=== PATIENT | female | born 1955 | race African-American/Black ===

== ENCOUNTER 2017-10-19 07:52 | Emergency (ER) | payer BC, OTHER ==
--- NOTE | 2017-10-19 12:08 | RAD ---
TWO VIEWS CHEST: Date: 10-19-17 Comparison: 10-06-13 History: Flu-like symptoms with cough, chills, and headache. FINDINGS: Lungs are clear. Heart and mediastinal contours are unremarkable. Post-operative clips in upper abdom en suggest prior cholecystectomy. IMPRESSION: No acute findings. POS: [facility]
== END 2017-10-19 09:30 | disposition home or self-care (01) ==
LOC: ERS 07:52
DX: J20.9 Acute bronchitis, unspecified (principal); E78.5 Hyperlipidemia, unspecified; I10 Essential (primary) hypertension; F41.9 Anxiety disorder, unspecified; F32.9 Major depressive disorder, single episode, unspecified; Z79.899 Other long term (current) drug therapy
CPT/HCPCS: 71046

== ENCOUNTER 2017-11-11 10:19 | Inpatient (IN) | payer BC ==
[2017-11-11] MEDS ORDERED: diphenhydrAMINE 25 MG CAP ONE (12:28)
[2017-11-11] MEDS ORDERED: predniSONE 20 MG TAB ONE (12:28)
[2017-11-11] MEDS ORDERED: Famotidine 20 MG TAB ONE (12:28)
--- NOTE | 2017-11-11 13:22 | RAD ---
CHEST TWO VIEWS: 11/11/2017 HISTORY: Dyspnea. COMPARISON: 10/19/2017 TECHNIQUE: PA and lateral views of the chest are obtained. FINDINGS: Two views of the chest demonstrate the lungs to be well aerated. No evidence of active intrathoracic disease is seen. No evidence of effusions, pneumonia, or pneumothorax is seen. IMPRESSION: Normal two views chest. POS: [facility]
[2017-11-11 15:01] LABS: #Basophils 0.1 thou/uL (0.0-0.2); #Eosinphils 0.7 thou/uL (0.0-0.7); #Lymphocytes 2.5 thou/uL (1.20-3.40); #Monocytes 0.3 thou/uL (0.11-0.59); #Neutrophils 5.7 thou/uL (1.40-6.50); %Basophils 0.9 % (0.0-1.0); %Eosinophils 7.6 % (0.0-10.0); %Lymphocytes 27.4 % (21.0-51.0); %Monocytes 2.7 % (0.0-10.0); %Neutrophils 61.5 % (42.0-75.0); Hemoglobin 12.2 g/dL (12.0-16.0); Mean Corpuscular HGB CONC 32.4 g/dL (32.0-36.0); Mean Corpuscular Hemoglobin 28.8 pg (27.0-31.0); Mean Platelet Volume 7.8 fL (7.4-10.4); Platelet Count 326 thou/uL (130-400); RBC Distribution Width 13.3 % (11.5-14.5); Red Blood Cell (RBC) Count 4.24 mill/uL (4.20-5.40); White Blood Cell (WBC) Count 9.2 thou/uL (4.8-10.8)
--- NOTE | 2017-11-11 15:17 | PDOC.FPRHP ---
- History of Present Illness Chief Complaint: Allergic reaction History of Present Illness: 61 yo female presents for evaluation of allergic reaction. She states that she saw her ENT doctor on Friday and was given Augmentin after his evaluation revealed sinusitis. She did not have any clinical congestion or mucous production. However, given her past sinus surgery, her doctor decided to treat. She took the medication on Friday, Friday, and Friday without any problem. Then on friday she became nauseas, vomited, and developed a red rash on her back. She then stated she began to feel SOB today. She called the clinic and was advised to go to the ER. Also recently she has been dealing with bronchitis symptoms for which she was given prednisone by her PCP. She admits to wheezing during this time, but it is unchanged since the beginning of her bronchitis episodes. She states that she has not had fever, chills, difficulty speaking, or difficulty swallowing. No other complaints at this time. ED Course: Duoneb x2 Diphenhydramine Famotidine Prednisone - Allergies/Adverse Reactions Allergies Allergy/AdvReac Type Severity Reaction Status Date / Time amoxicillin [From Augmentin] Allergy Severe Rash Verified 11/11/17 17:21 clavulanic acid Allergy Severe Rash Verified 11/11/17 17:21 [From Augmentin] codeine Allergy Verified 11/22/13 21:21 hydrocodone Allergy Verified 11/23/13 03:30 - Home Medications Medication Instructions Recorded Confirmed Type Aspirin [Children's Aspirin] 81 mg PO DAILY 11/23/13 11/11/17 History Lorazepam [Ativan] 1 mg PO HS PRN 11/23/13 11/11/17 History Meclizine HCl [Antivert] 25 mg PO Q8H PRN #0 tab 11/23/13 11/11/17 Rx Acetaminophen [Tylenol Extra 500 mg PO Q4H PRN #0 tab 03/19/16 11/11/17 Rx Strength] Ondansetron [Zofran ODT] 4 mg PO Q6H PRN #0 tab 03/19/16 11/11/17 Rx Amlodipine [Norvasc] 5 mg PO DAILY 11/11/17 11/11/17 History Atorvastatin Calcium [Lipitor] 20 mg PO DAILY 11/11/17 11/11/17 History Benzonatate [Tessalon] 100 mg PO TID PRN 11/11/17 11/11/17 History Cyclobenzaprine HCl 10 mg PO HS 11/11/17 11/11/17 History DULoxetine [Cymbalta] 30 mg PO DAILY 11/11/17 11/11/17 History Losartan/Hydrochlorothiazide 1 each PO DAILY 11/11/17 11/11/17 History [Losartan-Hctz 50-12.5 mg Tab] Pantoprazole [Protonix] 40 mg PO DAILY 11/11/17 11/11/17 History Phentermine HCl 37.5 mg PO DAILY 11/11/17 11/11/17 History Phentermine HCl 37.5 mg PO DAILY 11/11/17 11/11/17 History Ventolin HFA Inhaler [Ventolin HFA 2 puff INH Q6HR PRN 11/11/17 11/11/17 History Inhaler] guaiFENesin/Dextromethorphan 2 capsule PO Q4HR PRN 11/11/17 11/11/17 History [Robitussin Cough+Chest Congestion DM] predniSONE [predniSONE] 20 mg PO DAILY 11/11/17 11/11/17 History - History PMHx: HLD, HTN, RA, Anxiety, Depression PSHx: Left wrist, left knee, Bilateral laryngeal cyst removals, Tubal ligation, cholecystectomy, sinus surgery FHx: Non-Contributory Social: No tobacco, alcohol, or drug use. - Review of Systems General: denies: fever/chills, weight/appetite/sleep changes Eyes: denies: eye pain, vision changes ENT: denies: nasal congestion Respiratory: reports: cough, other (wheezing). denies: congestion, shortness of breath, exercise intolerance Cardiovascular: denies: chest pain, palpitation Gastrointestinal: reports: nausea, vomiting. denies: diarrhea, constipation, abdominal pain Genitourinary: denies: incontinence, dysuria Skin: reports: rashes. denies: lesions, jaundice Musculoskeletal: denies: pain, tenderness, stiffness Neurological: denies: numbness, syncope Psychological: denies: anxiety, depression - Vital signs BP: 130/88 HR: 104 RR: 20 Tmax: 98.3 Pox: 97% on RmAir Wt: 91 kg - Physical Exam Constitutional: NAD HEENT: PERRLA, grossly normal vision, grossly normal hearing, normal nasal mucosa -HEENT: poor dentition. Patent airway. No evidence of pharyngeal edema Neck: supple, trachea midline Chest: no-tender to palpation Heart: RRR, normal S1/S2 Lungs: CTAB, good air movement -Lungs: expiratory wheezing bilaterally Abdomen: soft, non-tender, bowel sounds present, no masses/distention Musculoskeletal: normal structure, normal tone, ROM grossly normal Neurological: no focal deficit, CN II-XII intact, normal sensation Skin: no rash/lesions, good turgor Heme/Lymphatic: no unusual bruising or bleeding, no purpura, no petechia Psychiatric: normal mood and affect, good judgment and insight, intact recent and remote memory FMR H&P: Results - Labs Result Diagrams: 11/11/17 14:51 11/11/17 16:14 Lab results: WBC 9.2 thou/uL (4.8-10.8) 11/11/17 14:51 Hgb 12.2 g/dL (12.0-16.0) 11/11/17 14:51 Hct 37.7 % (36.0-47.0) 11/11/17 14:51 MCV 89.0 fl (81.0-99.0) 11/11/17 14:51 Plt Count 326 thou/uL (130-400) 11/11/17 14:51 Neutrophils % 61.5 % (42.0-75.0) 11/11/17 14:51 - Radiology Interpretation Chest x-ray Status: report reviewed by me (No acute process) FMR H&P: A/P - Problem List (1) Bronchitis Current Visit: Yes Status: Acute Code(s): J40 - BRONCHITIS, NOT SPECIFIED ACUTE OR CHRONIC (2) Drug reaction Current Visit: Yes Status: Acute Code(s): T88.7XXA - UNSP ADVERSE EFFECT OF DRUG OR MEDICAMENT, INIT ENCNTR (3) GERD (gastroesophageal reflux disease) Current Visit: No Status: Acute Code(s): K21.9 - GASTRO-ESOPHAGEAL REFLUX DISEASE WITHOUT ESOPHAGITIS (4) HTN (hypertension) Current Visit: No Status: Acute Code(s): I10 - ESSENTIAL (PRIMARY) HYPERTENSION (5) Rheumatoid arthritis Current Visit: No Status: Acute Code(s): M06.9 - RHEUMATOID ARTHRITIS, UNSPECIFIED (6) Anxiety and depression Current Visit: No Status: Acute - Plan 1. Viral Bronchitis - Continue low dose prednisone - PRN albuterol 2. Mild drug reaction - Continue PPI - PRN zofran - No concern for anaphylaxis 3. Rheumatoid Arthritis - continue home meds - Patient may benefit from outpatient Pulmonology consultation. 4. HTN - Continue home meds - BP at goal 5. HLD - Continue home meds 6. Depression - Continue home meds CODE STATUS: FULL CODE Disposition: Stable, Will admit for Observation and discharge tomorrow. FMR H&P: Upper Level - Pertinent history 61 yr old female who presents > 12 hours after feeling some difficulty breathing. She attributes this to taking augmentin which she started 5 days ago which she got for chronic sinusitis by her ENT. She felt some tickling in her throat and sorta like her throat was closing last night at 8 pm. She then vomited and went to bed. Decided to come to ER this morning. Apparently she desat in the ER to 89% on a walking test and decided to admit her. She only received albuterol, pepcid, and benadryl in the ER. She states she has had a cough since 10/19/17 and has been treated for bronchitis with prednisone by PCP. - Pertinent findings Gen:no acute distress, no respiratory distress ENT: No pharyngeal edema, no uvular edema, no exudate. Lung: good air movement, wheezing diffuse, no Cardiac: RRR, no murmur, rub, gallop Abd: nontender, non distended. - Plan Date/Time: 11/11/17 2577 I, [Zahra Escamilla], have evaluated this patient and agree with findings/plan as outlined by architectural intern resident. Pertinent changes/additions are listed here. 61 yr old female with PMH of anxiety, WILL, RA, HLD, HTN, and depression who presents for difficulty breathing after taking augmentin. Bronchitis - cont low dose prednisone -PRN albuterol mild drug reaction -cont PPI -PRN zofran -no concern for anaphylaxis RA cont home meds HTN -cont home meds HLD -cont home meds depression -cont home Attending Addendum - Attending Addendum Date/Time: 11/11/17 5860 I personally evaluated the patient and discussed the management with Dr. Fritz and Francine. I agree with and repeated the History, Examination, Assessment and Plan documented above with any addition or exceptions noted below. Pt doing well, improved from ED. +cough, ST, and vomiting. Zofran PRN, add steroids and albuterol nebs, PPI. No signs of anaphylaxis or urticaria on exam. Will follow closely overnight and plan d/c tomorrow.
[2017-11-11 15:30] LABS: CKMB 2.4 ng/mL (0-6.6); Troponin I Less than 0.010 ng/mL (< 0.028)
[2017-11-11] MEDS ORDERED: Ondansetron ODT 4 MG TAB SL PRN (16:26)
[2017-11-11] MEDS ORDERED: Sodium Chloride 0.9% 1,000 ML IV SCH (16:26)
[2017-11-11] MEDS ORDERED: Ondansetron HCl/PF 4 MG/2 ML Vial IVP PRN (16:26)
[2017-11-11 16:34] LABS: Albumin 4.1 g/dL (3.5-5.0)
[2017-11-11 16:35] LABS: Chloride 107 mmol/L (98-107); Sodium 139 mmol/L (136-145)
[2017-11-11 16:36] LABS: Calcium 9.3 mg/dL (7.8-10.44); Glucose 97 mg/dL (70-105)
[2017-11-11 16:37] LABS: Globulin 4.4 g/dL (2.4-3.5); Protein, Total 8.5 g/dL (6.0-8.3)
[2017-11-11 16:38] LABS: Anion Gap 16 mmol/L (10-20); Bilirubin, Total 0.7 mg/dL (0.2-1.2); Carbon Dioxide 20 mmol/L (22-29)
[2017-11-11 16:39] LABS: Alkaline Phosphatase 109 U/L (40-150)
[2017-11-11 16:40] LABS: Calc. Creatinine Clearance 0 mL/min (70-130); Estimated GFR-MDRD Greater than 90
[2017-11-11 16:41] LABS: BUN (Urea Nitrogen) 9 mg/dL (9.8-20.1)
[2017-11-11 16:42] LABS: AST (SGOT) 28 U/L (5-34)
[2017-11-11 16:43] LABS: ALT (SGPT) 18 U/L (8-55)
[2017-11-11] MEDS ORDERED: Meclizine HCl 25 MG TAB PO PRN (18:49)
[2017-11-11] MEDS ORDERED: Ondansetron ODT 4 MG TAB PO PRN (18:49)
[2017-11-11] MEDS ORDERED: Lorazepam 1 MG TAB PO PRN (18:49)
[2017-11-11] MEDS ORDERED: Diabetic Tussin DM 5 ML UDCUP PO PRN (18:49)
[2017-11-11] MEDS ORDERED: PROVENTIL INHALER 6.7 G (200 INHALATIONS) INH PRN (18:49)
[2017-11-11] MEDS ORDERED: Acetaminophen 500 MG TAB PO PRN (18:49)
[2017-11-11] MEDS ORDERED: Guaifenesin DM 100-10/5 ML UDCUP PO PRN (22:25)
[2017-11-11] MEDS: Cyclobenzaprine 10 MG TAB PO SCH ×2 (23:18→23:23)
[2017-11-11] MEDS: Benzonatate 100 MG CAP PO PRN (23:25)
[2017-11-12] MEDS: guaiFENesin/DM ER PO PRN ×2 (04:16→17:30)
--- NOTE | 2017-11-12 08:24 | PDOC.FM ---
- Subjective Subjective: Mrs. Mabry is very pleasant this morning. She does note it being difficult to walk to the bathroom because she feels short of breath. She notes the increased SOB starting Friday evening. She notes coughing up sputum and shows me a jar of yellowish/white/buckley colored sputum at bedside. Productive cough since 10/19/17. She notes right sided rib pain worse with coughing. She has been 95% on RA this morning. She reports improvement in breathing with nebulizer treatment. She also is hoarse. This is new but she is unable to quantify how long (2 months vs 2 wks) - Objective MAR Reviewed: Yes Vital Signs & Weight: Vital Signs (12 hours) Temp Pulse Resp BP Pulse Ox 11/12/17 07:48 98.4 F 114 H 22 H 136/64 95 11/12/17 06:34 101 H 24 H 96 11/12/17 03:53 98.2 F 117 H 24 H 176/81 H 92 L 11/11/17 23:28 98.3 F 113 H 20 163/67 H 93 L 11/11/17 23:07 111 H 20 98 Weight Admit Weight 97.7 kg Weight 97.54 kg I&O: 11/11/17 11/12/17 11/13/17 06:59 06:59 06:59 Intake Total 3190 Balance 3190 Result Diagrams: 11/11/17 14:51 11/11/17 16:14 <Zahra Escamilla A - Last Filed: 11/12/17 09:19> - Objective Vital Signs & Weight: Vital Signs (12 hours) Temp Pulse Resp BP Pulse Ox 11/14/17 08:13 88 11/14/17 08:10 97.9 F 96 20 128/64 93 L 11/14/17 06:29 88 16 11/14/17 06:21 88 16 11/14/17 00:07 117 H 16 100 11/13/17 22:02 98.1 F 107 H 94 H 94 L Weight Admit Weight 97.7 kg Weight 97.54 kg I&O: 11/13/17 11/14/17 11/15/17 06:59 06:59 06:59 Intake Total 480 240 Balance 480 240 Result Diagrams: 11/11/17 14:51 11/11/17 16:14 <Destin Cortes A - Last Filed: 11/14/17 09:15> Phys Exam - Physical Examination Constitutional: NAD diffuse inspiratory and expiratory wheeezing, no crackles, no rhales Cardiovascular: no significant murmur tachycardic Gastrointestinal: soft, non-tender Musculoskeletal: no edema Neurological: non-focal, normal sensation, moves all 4 limbs Psychiatric: A&O x 3 <Zahra Escamilla - Last Filed: 11/12/17 09:19> Dx/Plan (2) Wheezing on auscultation Code(s): R06.2 - WHEEZING Status: Acute (3) Tachycardia with heart rate 100-120 beats per minute Code(s): R00.0 - TACHYCARDIA, UNSPECIFIED Status: Acute (4) HTN (hypertension) Code(s): I10 - ESSENTIAL (PRIMARY) HYPERTENSION Status: Chronic (5) Obstructive sleep apnea on CPAP Code(s): G47.33 - OBSTRUCTIVE SLEEP APNEA (ADULT) (PEDIATRIC) Status: Chronic (6) Rheumatoid arthritis Code(s): M06.9 - RHEUMATOID ARTHRITIS, UNSPECIFIED Status: Chronic - Plan Plan: 61 yr old female with long hisotry of rheumatoid arthritis presents for what is thought to be drug allergy and is found to be wheezing and admitting due to hypoxia on walk test. wheezing - differential include RA associated interstitial disease, adult onset asthma, bronchitis -will send sputum culture -needs PFT's- likely outpatient - Will do walk test this AM and clinical workup dependent on O2 sat Tachycardia -May be 2/2 increased nebulized albuterol -obtain EKG drug allergy -minimal if any, however will refrain from giving PCN to patient - no uvular swelling. HTN - controlled -continue home meds RA - outpatient mgmt -no acute flare <Zahra Escamilla - Last Filed: 11/12/17 09:19> Attending Addendum - Attending Addendum Date/Time: 11/14/17 0912 I personally evaluated the patient and discussed the management with Dr. Escamilla. I agree with the History, Examination, Assessment and Plan documented above with any addition or exceptions noted below. PENG and mildly at rest. Desats with exertion. Better with O2 via NC. Cough productive of yellowish sputum. Wheezes auscultated throughout bilat lungs, improved post neb. Continue respiratory support. Agree with CTA to eval for possible interstitial lung dz and r/o PE as pt. has no prior h/o pulmonary dysfunction. <Destin Cortes - Last Filed: 11/14/17 09:15>
[2017-11-12] MEDS ORDERED: predniSONE 20 MG TAB PO SCH (09:00)
[2017-11-12] MEDS ORDERED: Non-Formulary Item 1 EACH (Phentermine Hcl [Phentermine Hcl] 37.5 MG) PO SCH ×2 (09:00)
[2017-11-12] MEDS: Atorvastatin Calcium 20 MG TAB PO SCH (09:30)
[2017-11-12] MEDS: DULoxetine 30 MG CAP PO SCH (09:30)
[2017-11-12] MEDS: Amlodipine 5 MG TAB PO SCH ×2 (09:31→09:35)
[2017-11-12 11:57] VITALS: BMI 33.7
[2017-11-12] MEDS ORDERED: Iopamidol 370 76% 100 ML VIAL ONE (13:11)
--- NOTE | 2017-11-12 13:38 | CON ---
DATE OF CONSULTATION: 11/12/2017 This is a 61-year-old female, 90 kilos presented to the ER with a blood pressure of 151/138, pulse 113, respiration is 22. Sats 90% room air, temperature 98. She says she was itching after she was given some medicine over the last week and had shortness of breath. She denies any day st pain, chills, sweats, hemoptysis. She has longstanding history of chronic asthma. She smoked she says less than a pack a day for 10 years, quit smoking in the . No history of pr evious pneumonia, history of TB exposure. She says on most days, she says she can walk at least a bl ock without getting markedly short of breath. No leg pain, no swelling. PAST MEDICAL HISTORY: Pertinent for reflux, pancreatitis, rheumatoid arthritis, depression, anxiety. She is disabled. PAST SURGICAL HISTORY: Laryngeal cyst, tubal ligation, gallbladder, sinus surgery, left wrist surger y. ALCOHOL: No alcohol. HOME MEDICATIONS: Guaifenesin, aspirin, meclizine 25 p.r.n., Lipitor 20 mg, phentermine, 37.5, Norva sc 5 mg, Tessalon, Ativan, Cymbalta 30. ALLERGIES: PENICILLIN, CODEINE. SOCIAL/FAMILY HISTORY: She is a retired school health aide. Alcohol as noted. Tobacco as noted. REVIEW OF SYSTEMS: Otherwise, 10-point negative. PHYSICAL EXAMINATION: VITAL SIGNS: Sats are 97 on room air, respiration 20, pulse 108, temperature 97, blood pressure 170/ 81. CHEST: Chest reveals minimal wheezing. CARDIAC: Normal S1, S2, no gallops. ABDOMEN: Soft, no masses. LABORATORY: White count 9000, H&H 12 and 37, platelet count is normal. Electrolytes are normal. X-ray was normal. A CT angiogram shows no PE. IMPRESSION: 1. Chronic obstructive pulmonary disease. 2. Bronchial asthma exacerbation. 3. Depression. 4. Rheumatoid arthritis. PLAN: I agree with present treatment, nebs, steroids, Dulera. Pulmonary function test prior to discharge baseline. This is a consultation note, 70 minutes, of which 50% spent in direct patient care.
--- NOTE | 2017-11-12 14:35 | CT ---
CT PULMONARY ANGIOGRAM WITH IV CONTRAST AND 3D POSTPROCESSING: HISTORY: Hypoxia, tachycardia. FINDINGS: No filling defects are seen in the pulmonary artery vasculature to suggest an aneurysm. The thoracic aorta demonstrates no evidence of aneurysm or dilatation. No pleural or pericardial effusions are s een. No pneumothoraces, lobar consolidation, or lung masses are identified. There are mild degenera tive changes in the spine. IMPRESSION: No CT evidence of pulmonary embolism. POS: [facility]
[2017-11-12] MEDS ORDERED: Hydrochlorothiazide 25 MG TAB PO SCH (15:00)
[2017-11-12] MEDS: Mometasone/Formoterol 120 PUFF INHALER INH SCH (18:41)
--- NOTE | 2017-11-12 20:27 | EKG ---
Test Reason : Blood Pressure : / mmHG Vent. Rate : 109 BPM Atrial Rate : 109 BPM P-R Int : 142 ms QRS Dur : 088 ms QT Int : 326 ms P-R-T Axes : 056 059 040 degrees QTc Int : 439 ms Sinus tachycardia Otherwise normal ECG When compared with ECG of 22-MAR-2016 22:22, Nonspecific T wave abnormality no longer evident in Anterolateral leads Confirmed by TAMRA ZACARIAS (2) on 11/12/2017 8:27:02 PM Referred By: ASAD Confirmed By:TAMRA ZACARIAS
[2017-11-12] MEDS: Benzonatate 100 MG CAP PO PRN (21:24)
[2017-11-12] MEDS: Cyclobenzaprine 10 MG TAB PO SCH (21:25)
[2017-11-12] MEDS: predniSONE 20 MG TAB PO SCH (21:25)
[2017-11-13] MEDS: Mometasone/Formoterol 120 PUFF INHALER INH SCH ×2 (06:25→18:40)
[2017-11-13] MEDS: predniSONE 20 MG TAB PO SCH ×2 (08:58→21:06)
[2017-11-13] MEDS: Atorvastatin Calcium 20 MG TAB PO SCH (08:58)
[2017-11-13] MEDS: Hydrochlorothiazide 25 MG TAB PO SCH (08:58)
[2017-11-13] MEDS: DULoxetine 30 MG CAP PO SCH (08:58)
[2017-11-13] MEDS: Amlodipine 5 MG TAB PO SCH (08:59)
--- NOTE | 2017-11-13 11:54 | PDOC.FM ---
- Subjective Subjective: Patient is feeling better this morning. She states she has been up walking and does feel short winded but not quite as bad as yesterday. She is still coughing up phlegm. She otherwise has no complaints. - Objective MAR Reviewed: Yes Vital Signs & Weight: Vital Signs (12 hours) Temp Pulse Resp BP Pulse Ox 11/13/17 10:35 102 H 18 99 11/13/17 08:59 99 11/13/17 08:55 98.3 F 102 H 18 11/13/17 08:10 98.3 F 99 18 129/78 99 11/13/17 06:26 98 11/13/17 06:25 96 18 98 11/13/17 06:23 96 18 98 11/13/17 02:30 89 18 100 Weight Admit Weight 97.7 kg Weight 97.54 kg I&O: 11/12/17 11/13/17 11/14/17 06:59 06:59 06:59 Intake Total 3190 480 Balance 3190 480 Result Diagrams: 11/11/17 14:51 11/11/17 16:14 Radiology Reviewed by me: Yes <Zahra Escamilla - Last Filed: 11/13/17 11:57> - Objective Vital Signs & Weight: Vital Signs (12 hours) Temp Pulse Resp BP Pulse Ox 11/14/17 08:13 88 11/14/17 08:10 97.9 F 96 20 128/64 93 L 11/14/17 06:29 88 16 11/14/17 06:21 88 16 11/14/17 00:07 117 H 16 100 11/13/17 22:02 98.1 F 107 H 94 H 94 L Weight Admit Weight 97.7 kg Weight 97.54 kg I&O: 11/13/17 11/14/17 11/15/17 06:59 06:59 06:59 Intake Total 480 240 Balance 480 240 Result Diagrams: 11/11/17 14:51 11/11/17 16:14 <Destin Cortes - Last Filed: 11/14/17 09:19> Phys Exam - Physical Examination Constitutional: NAD HEENT: moist MMs Respiratory: no rales, no rhonchi wheezing diffuse Cardiovascular: RRR, no significant murmur Gastrointestinal: soft, non-tender Musculoskeletal: no edema Neurological: non-focal, moves all 4 limbs Psychiatric: A&O x 3 Skin: cap refill <2 seconds <Zahra Escamilla - Last Filed: 11/13/17 11:57> Dx/Plan (1) COPD with acute exacerbation Code(s): J44.1 - CHRONIC OBSTRUCTIVE PULMONARY DISEASE W (ACUTE) EXACERBATION Status: Acute (2) Wheezing on auscultation Code(s): R06.2 - WHEEZING Status: Acute (3) Tachycardia with heart rate 100-120 beats per minute Code(s): R00.0 - TACHYCARDIA, UNSPECIFIED Status: Resolved (4) HTN (hypertension) Code(s): I10 - ESSENTIAL (PRIMARY) HYPERTENSION Status: Chronic (5) Obstructive sleep apnea on CPAP Code(s): G47.33 - OBSTRUCTIVE SLEEP APNEA (ADULT) (PEDIATRIC) Status: Chronic (6) Rheumatoid arthritis Code(s): M06.9 - RHEUMATOID ARTHRITIS, UNSPECIFIED Status: Chronic - Plan Plan: 61 yr old female with long history of rheumatoid arthritis presents for what is thought to be drug allergy and is found to be wheezing and admitting due to hypoxia on walk test. COPD exacerbation - differential include RA associated interstitial disease, adult onset asthma, bronchitis -sputum cx pending -needs PFT's per Dr. Cortés order - arranging home O2 incase she needs it, awaiting improvement. Doing okay on RA at rest but not with ambulation Tachycardia -CTA chest neg -likely 2/2 albuterol drug allergy -minimal if any, however will refrain from giving PCN to patient - no uvular swelling. HTN - un controlled -HCTZ ADDED RA -outpatient mgmt -no acute flare <Zahra Escamilla - Last Filed: 11/13/17 11:57> Attending Addendum - Attending Addendum Date/Time: 11/14/17 9117 I personally evaluated the patient and discussed the management with Dr. Escamilla. I agree with the History, Examination, Assessment and Plan documented above with any addition or exceptions noted below. Lungs less wheezes. SaO2 95% on RA at rest. Reportedly dropped to 70's when ambulated but no distress noted. CTA negative Dr. Cortés's input appreciated. Manage as acute exacerbation of COPD. If tolerant of deescalation, consider d/ c in am. <Cortes,Destin A - Last Filed: 11/14/17 09:19>
--- NOTE | 2017-11-13 14:32 | PRG ---
DATE OF SERVICE: 11/13/2017 SUBJECTIVE: This morning, she is much better, less shortness of breath, coughing, wheezing. OBJECTIVE: VITAL SIGNS: Sats are 99 on 1 liter, pulse of 99, temperature 98, blood pressure 129/78. CHEST: Occasional wheeze. CARDIAC: Normal S1, S2. No gallops.. ABD NEG IMPRESSION: Chronic obstructive pulmonary disease ,\\ chronic asthma exacerbation. She can be discharged home on tapering dose of prednisone, inhaled steroids, nebs treatment. SKIP
[2017-11-13] MEDS ORDERED: Azithromycin 250 MG TAB PO SCH (18:00)
[2017-11-13] MEDS: Albuterol Sulfate 2.5 mg/3 ml Neb NEB SCH (18:39)
[2017-11-13] MEDS: PROVENTIL INHALER 6.7 G (200 INHALATIONS) INH SCH (18:42)
[2017-11-13] MEDS: Cyclobenzaprine 10 MG TAB PO SCH (21:06)
[2017-11-13] MEDS: guaiFENesin/DM ER PO PRN (21:08)
[2017-11-14] MEDS: PROVENTIL INHALER 6.7 G (200 INHALATIONS) INH SCH ×2 (00:07→06:26)
[2017-11-14] MEDS: Albuterol Sulfate 2.5 mg/3 ml Neb NEB SCH (06:21)
--- NOTE | 2017-11-14 06:28 | PDOC.FM ---
- Subjective Subjective: Patient did well through the night. She was weaned down on albuterol treatments and slept throught the night without them. She is breathing better and walked outside a far distance in the healing garden yesterday afternoon. She is ready to go home. - Objective MAR Reviewed: Yes Vital Signs & Weight: Vital Signs (12 hours) Temp Pulse Resp BP Pulse Ox 11/14/17 06:21 88 16 11/14/17 00:07 117 H 16 100 11/13/17 22:02 98.1 F 107 H 94 H 94 L 11/13/17 20:00 98.1 F 107 H 94 H 127/62 20 L 11/13/17 18:39 106 H 18 97 Weight Admit Weight 97.7 kg Weight 97.54 kg I&O: 11/12/17 11/13/17 11/14/17 06:59 06:59 06:59 Intake Total 3190 480 240 Balance 3190 480 240 Result Diagrams: 11/11/17 14:51 11/11/17 16:14 <Zahra Escamilla - Last Filed: 11/14/17 08:02> - Objective Vital Signs & Weight: Vital Signs (12 hours) Temp Pulse Resp BP Pulse Ox 11/14/17 08:13 88 11/14/17 08:10 97.9 F 96 20 128/64 93 L 11/14/17 06:29 88 16 11/14/17 06:21 88 16 11/14/17 00:07 117 H 16 100 11/13/17 22:02 98.1 F 107 H 94 H 94 L Weight Admit Weight 97.7 kg Weight 97.54 kg I&O: 11/13/17 11/14/17 11/15/17 06:59 06:59 06:59 Intake Total 480 240 Balance 480 240 Result Diagrams: 11/11/17 14:51 11/11/17 16:14 <Destin Cortes A - Last Filed: 11/14/17 09:22> Phys Exam - Physical Examination Constitutional: NAD Respiratory: no rales, no rhonchi diffuse wheezing, good air movement Cardiovascular: RRR, no significant murmur Gastrointestinal: soft, non-tender Musculoskeletal: no edema Neurological: non-focal, normal sensation, moves all 4 limbs Psychiatric: A&O x 3 Skin: cap refill <2 seconds <Zahra Escamilla - Last Filed: 11/14/17 08:02> Dx/Plan (1) COPD with acute exacerbation Code(s): J44.1 - CHRONIC OBSTRUCTIVE PULMONARY DISEASE W (ACUTE) EXACERBATION Status: Acute (2) Wheezing on auscultation Code(s): R06.2 - WHEEZING Status: Acute (3) Tachycardia with heart rate 100-120 beats per minute Code(s): R00.0 - TACHYCARDIA, UNSPECIFIED Status: Resolved (4) HTN (hypertension) Code(s): I10 - ESSENTIAL (PRIMARY) HYPERTENSION Status: Chronic (5) Obstructive sleep apnea on CPAP Code(s): G47.33 - OBSTRUCTIVE SLEEP APNEA (ADULT) (PEDIATRIC) Status: Chronic (6) Rheumatoid arthritis Code(s): M06.9 - RHEUMATOID ARTHRITIS, UNSPECIFIED Status: Chronic - Plan Plan: 61 yr old female with long history of rheumatoid arthritis presents for difficulty breathing-found to be in asthma vs COPD exacerbation COPD exacerbation -sputum cx normal rommel -overall improved -home on albuterol nebs q 8 hrs for week 1, then PRN. -flovent daily -4 additional days azithromycin, plus steroid taper -follow up with Dr. Cortés to get PFTs -PRN albuterol inhaler -script for nebulizer machine provided. -walking test this AM prior to DC- has done well on RA. Tachycardia -CTA chest neg -likely 2/2 albuterol drug allergy -minimal if any, however will refrain from giving PCN to patient - no uvular swelling. HTN -HCTZ ADDED this hospitalization -improved -f/u outpatient RA -outpatient mgmt -no acute flare <Zahra Escamilla - Last Filed: 11/14/17 08:02> Attending Addendum - Attending Addendum Date/Time: 11/14/17 0921 I personally evaluated the patient and discussed the management with Dr. Escamilla. I agree with the History, Examination, Assessment and Plan documented above with any addition or exceptions noted below. Breathing improved. Tolerating extended ambulation on RA. Lungs with improved air movement and scattered wheeze. Stable for d/c home on COPD mgt meds. <Destin Cortes - Last Filed: 11/14/17 09:22>
[2017-11-14] MEDS: Mometasone/Formoterol 120 PUFF INHALER INH SCH (06:29)
[2017-11-14] MEDS: predniSONE 20 MG TAB PO SCH (08:13)
[2017-11-14] MEDS: Amlodipine 5 MG TAB PO SCH (08:13)
[2017-11-14] MEDS: DULoxetine 30 MG CAP PO SCH (08:13)
[2017-11-14] MEDS: Hydrochlorothiazide 25 MG TAB PO SCH (08:13)
[2017-11-14] MEDS: Atorvastatin Calcium 20 MG TAB PO SCH (08:13)
[2017-11-14 08:14] VITALS: BP 128/64; TEMP 97.9
--- NOTE | 2017-11-14 12:25 | PRG ---
DATE OF SERVICE: 11/14/2017 SUBJECTIVE: She is doing well, less short of breath. She had a PFT this morning. OBJECTIVE: VITAL SIGNS: Sats are 90% on room air, temperature 97, and blood pressure 128/64. CHEST: Chest reveals decreased breath sounds, no wheezing. CARDIAC: Normal S1, S2. ABDOMEN: Soft. No masses. IMPRESSION: 1. Chronic obstructive pulmonary disease exacerbations. 2. Bronchitis. PLAN: She can be discharged home on tapering dose of prednisone. She will follow up in my office in about 2-3 weeks.
== END 2017-11-14 12:00 | disposition home or self-care (01) | DRG 191 ==
LOC: ERS 10:19 → ONC 16:34 → OBSVTOIN 16:34
PROVIDERS: ADMIT Family Medicine; ATTEND Family Medicine
DX: J44.1 Chronic obstructive pulmonary disease with (acute) exacerbation (principal); J45.901 Unspecified asthma with (acute) exacerbation; I10 Essential (primary) hypertension; R00.0 Tachycardia, unspecified; G47.33 Obstructive sleep apnea (adult) (pediatric); Z99.81 Dependence on supplemental oxygen; M06.9 Rheumatoid arthritis, unspecified; Z87.891 Personal history of nicotine dependence; F32.9 Major depressive disorder, single episode, unspecified; E78.5 Hyperlipidemia, unspecified
CPT/HCPCS: 36415; 71046; 71275; 80053; 82553; 84484; 85025; 87070; 87205; 93005; 93010; 94640; J7506; J7611; J7620

== ENCOUNTER 2017-12-04 13:54 | Outpatient (CLI) | payer BC | END 2017-12-04 13:55 | disposition home or self-care (01) | LOC: BICMAMMO 13:54 | PROVIDERS: ATTEND Family Medicine | DX: Z12.31 Encounter for screening mammogram for malignant neoplasm of breast (principal); Z80.3 Family history of malignant neoplasm of breast | CPT/HCPCS: 77063; 77067 ==

== ENCOUNTER 2018-03-12 10:32 | Emergency (ER) | payer BC ==
[2018-03-12] MEDS ORDERED: Meclizine HCl 25 MG TAB ONE (11:09)
[2018-03-12 11:45] LABS: #Eosinphils 0.2 thou/uL (0.0-0.7); #Lymphocytes 2.5 thou/uL (1.20-3.40); #Monocytes 0.4 thou/uL (0.11-0.59); #Neutrophils 2.5 thou/uL (1.40-6.50); %Basophils 0.6 % (0.0-1.0); %Eosinophils 3.2 % (0.0-10.0); %Lymphocytes 45.6 % (21.0-51.0); %Monocytes 6.4 % (0.0-10.0); %Neutrophils 44.3 % (42.0-75.0); Hemoglobin 11.8 g/dL (12.0-16.0); Mean Corpuscular HGB CONC 31.5 g/dL (32.0-36.0); Mean Corpuscular Hemoglobin 28.2 pg (27.0-31.0); Mean Corpuscular Volume 89.8 fL (78.0-98.0); Mean Platelet Volume 7.5 fL (7.4-10.4); Platelet Count 309 thou/uL (130-400); RBC Distribution Width 13.4 % (11.5-14.5); Red Blood Cell (RBC) Count 4.19 mill/uL (4.20-5.40); White Blood Cell (WBC) Count 5.5 thou/uL (4.8-10.8)
[2018-03-12 12:09] LABS: ALT (SGPT) 13 U/L (8-55); AST (SGOT) 16 U/L (5-34); Albumin 3.9 g/dL (3.4-4.8); Alkaline Phosphatase 108 U/L (40-150); Anion Gap 10 mmol/L (10-20); BUN (Urea Nitrogen) 14 mg/dL (9.8-20.1); Bilirubin, Total 0.6 mg/dL (0.2-1.2); Calc. Creatinine Clearance 0 mL/min (70-130); Calcium 9.4 mg/dL (7.8-10.44); Carbon Dioxide 26 mmol/L (23-31); Chloride 103 mmol/L (98-107); Estimated GFR-MDRD 83; Globulin 3.9 g/dL (2.4-3.5); Glucose 88 mg/dL (80-115); Potassium 3.9 mmol/L (3.5-5.1); Protein, Total 7.8 g/dL (6.0-8.3); Sodium 135 mmol/L (136-145)
[2018-03-12 12:21] LABS: Bilirubin Negative (Negative); Blood, Urine Negative (Negative); Clarity CLEAR (Clear); Glucose, Urine (Dipstick) Negative (Negative); Leukocyte Small (Negative); Nitrite Negative (Negative); Protein, Urine (Dipstick) Negative (Neg-Trace); Specific Gravity, Urine 1.011 (1.002-1.036); Urobilinogen 0.2 mg/dL (0.2-1.0)
[2018-03-12 12:24] LABS: Bacteria/HPF None Seen HPF (None Seen); Hyaline Casts/LPF 0-3 HYALINE CAST LPF (0-3 Hyaline); RBC/HPF 0-3 HPF (0-3); Squamous Epithelial 0-3 HPF (0-3); WBC/HPF 0-3 HPF (0-3)
[2018-03-12] MEDS ORDERED: Ibuprofen 200 MG TAB ONE (13:05)
== END 2018-03-12 14:09 | disposition home or self-care (01) ==
LOC: ERS 10:32
DX: R42 Dizziness and giddiness (principal); R51 Headache; K85.90 Acute pancreatitis without necrosis or infection, unspecified; E78.5 Hyperlipidemia, unspecified; F41.9 Anxiety disorder, unspecified; F32.9 Major depressive disorder, single episode, unspecified; Z79.899 Other long term (current) drug therapy
CPT/HCPCS: 36415; 80053; 81003; 81015; 85025; 93005

== ENCOUNTER 2018-09-16 20:51 | Emergency (ER) | payer BC ==
--- NOTE | 2018-09-16 22:34 | RAD ---
CHEST TWO VIEW 09/16/18 HISTORY: Cough. COMPARISON: Radiograph 11/11/17. FINDINGS: Lungs are clear. No pneumothorax or effusion. The cardiac silhouette and mediastinal contours are wit hin normal limits. IMPRESSION: No acute intrathoracic abnormality. POS: [facility]
== END 2018-09-16 23:52 | disposition home or self-care (01) ==
LOC: ERS 20:51
DX: J20.9 Acute bronchitis, unspecified (principal); E78.5 Hyperlipidemia, unspecified; J45.909 Unspecified asthma, uncomplicated; M06.9 Rheumatoid arthritis, unspecified; F41.9 Anxiety disorder, unspecified; F32.9 Major depressive disorder, single episode, unspecified; I10 Essential (primary) hypertension
CPT/HCPCS: 71046; 87804

== ENCOUNTER 2018-09-23 09:11 | Outpatient (CLI) | payer BC ==
--- NOTE | 2018-09-23 10:04 | RAD ---
PA AND LATERAL CHEST: HISTORY: Dyspnea. COMPARISON: 09/16/2018 FINDINGS: The heart size is normal. The lungs are well expanded without focal areas of consolidation, pneumoth oraces, or pleural effusions. No acute osseous abnormalities are seen. IMPRESSION: Stable exam. No acute process. POS: C
== END 2018-09-23 09:12 | disposition home or self-care (01) ==
LOC: RAD 09:11
PROVIDERS: ATTEND Internal Medicine Critical Care Medicine
DX: R06.00 Dyspnea, unspecified (principal)
CPT/HCPCS: 71046

== ENCOUNTER 2018-12-29 14:54 | Outpatient (CLI) | payer BC ==
--- NOTE | 2018-12-29 15:51 | MMO ---
Bilateral MAMMO Bilat Screen [facility]. CLINICAL HISTORY: Patient is 63 years old and is seen for screening. The patient has the following family history of breast cancer: sister. The patient has no personal history of cancer. VIEWS: The views performed were: bilateral craniocaudal with tomosynthesis; bilateral mediolateral oblique with tomosynthesis; and right exaggerated craniocaudal. FILMS COMPARED: The present examination has been compared to prior imaging studies performed at [facility] on 06/17/2014, 08/07/2015, 12/03/2016 and 12/04/2017. MAMMOGRAM FINDINGS: There are scattered fibroglandular densities. There are no suspicious masses, suspicious calcifications, or new areas of architectural distortion. IMPRESSION: THERE IS NO MAMMOGRAPHIC EVIDENCE OF MALIGNANCY. A ROUTINE FOLLOW-UP MAMMOGRAM IN 1 YEAR IS RECOMMENDED. THE RESULTS OF THIS EXAM WERE SENT TO THE PATIENT. ACR BI-RADS Category 1 - Negative MAMMOGRAPHY NOTE: 1. A negative mammogram report should not delay a biopsy if a dominant of clinically suspicious mass is present. 2. Approximately 10% to 15% of breast cancers are not detected by mammography. 3. Adenosis and dense breasts may obscure an underlying neoplasm.
== END 2018-12-29 14:55 | disposition home or self-care (01) ==
LOC: BICMAMMO 14:54
PROVIDERS: ATTEND Family Medicine
DX: Z12.31 Encounter for screening mammogram for malignant neoplasm of breast (principal); Z80.3 Family history of malignant neoplasm of breast
CPT/HCPCS: 77063; 77067

== ENCOUNTER 2019-11-20 17:59 | Emergency (ER) | payer BC, OTHER ==
--- NOTE | 2019-11-20 18:32 | RAD ---
CHEST TWO VIEW: 11/20/19 HISTORY: Emergency exam. Chest pain. COMPARISON: Radiograph 2019. FINDINGS: The lungs are clear. No pneumothorax. No effusion. Tendon suture anchors left humeral neck. Calcific tendinosis right rotator cuff. IMPRESSION: No acute intrathoracic abnormality. POS: HOME
[2019-11-20 18:50] LABS: #Eosinphils 0.2 thou/uL (0.0-0.7); #Lymphocytes 2.8 thou/uL (1.20-3.40); #Monocytes 0.5 thou/uL (0.11-0.59); #Neutrophils 5.3 thou/uL (1.40-6.50); %Basophils 0.4 % (0.0-1.0); %Eosinophils 2.3 % (0.0-10.0); %Lymphocytes 31.1 % (21.0-51.0); %Monocytes 5.8 % (0.0-10.0); %Neutrophils 60.3 % (42.0-75.0); Hemoglobin 12.3 g/dL (12.0-16.0); Mean Corpuscular HGB CONC 30.3 g/dL (32.0-36.0); Mean Corpuscular Hemoglobin 28.6 pg (27.0-31.0); Mean Corpuscular Volume 94.5 fL (78.0-98.0); Mean Platelet Volume 8.1 fL (7.4-10.4); Platelet Count 285 thou/uL (130-400); RBC Distribution Width 13.3 % (11.5-14.5); Red Blood Cell (RBC) Count 4.31 mill/uL (4.20-5.40); White Blood Cell (WBC) Count 8.8 thou/uL (4.8-10.8)
[2019-11-20] MEDS ORDERED: Lorazepam 1 MG TAB ONE (19:29)
[2019-11-20 19:51] LABS: ALT (SGPT) 16 U/L (8-55); AST (SGOT) 25 U/L (5-34); Albumin 4.1 g/dL (3.4-4.8); Alkaline Phosphatase 113 U/L (40-110); Anion Gap 14 mmol/L (10-20); BUN (Urea Nitrogen) 10 mg/dL (9.8-20.1); Bilirubin, Total 0.6 mg/dL (0.2-1.2); Calc. Creatinine Clearance 0 mL/min (70-130); Carbon Dioxide 24 mmol/L (23-31); Chloride 104 mmol/L (98-107); Estimated GFR-MDRD 63; Glucose 95 mg/dL (80-115); Magnesium 1.9 mg/dL (1.6-2.6); Potassium 4.4 mmol/L (3.5-5.1); Protein, Total 8.1 g/dL (6.0-8.3); Sodium 138 mmol/L (136-145)
== END 2019-11-20 22:17 | disposition home or self-care (01) ==
LOC: ERS 17:59
DX: R20.2 Paresthesia of skin (principal); E78.00 Pure hypercholesterolemia, unspecified; E78.5 Hyperlipidemia, unspecified; I10 Essential (primary) hypertension; M06.9 Rheumatoid arthritis, unspecified; J45.909 Unspecified asthma, uncomplicated; F41.9 Anxiety disorder, unspecified; F32.9 Major depressive disorder, single episode, unspecified
CPT/HCPCS: 36415; 71046; 80053; 82550; 83735; 84443; 84484; 85025; 93005

== ENCOUNTER 2020-01-24 12:19 | Outpatient (CLI) | payer OTHER ==
--- NOTE | 2020-01-24 13:12 | MMO ---
Bilateral MAMMO Bilat Screen [facility]. CLINICAL HISTORY: Patient is 64 years old and is seen for screening. The patient has the following family history of breast cancer: sister. The patient has no personal history of cancer. VIEWS: The views performed were: bilateral craniocaudal with tomosynthesis and bilateral mediolateral oblique with tomosynthesis. FILMS COMPARED: The present examination has been compared to prior imaging studies performed at [facility] on 08/07/2015, 12/03/2016, 12/04/2017 and 12/29/2018. This study has been interpreted with the assistance of computer-aided detection. MAMMOGRAM FINDINGS: There are scattered fibroglandular densities. There are no suspicious masses, suspicious calcifications, or new areas of architectural distortion. IMPRESSION: THERE IS NO MAMMOGRAPHIC EVIDENCE OF MALIGNANCY. A ROUTINE FOLLOW-UP MAMMOGRAM IN 1 YEAR IS RECOMMENDED. THE RESULTS OF THIS EXAM WERE SENT TO THE PATIENT. ACR BI-RADS Category 1 - Negative MAMMOGRAPHY NOTE: 1. A negative mammogram report should not delay a biopsy if a dominant of clinically suspicious mass is present. 2. Approximately 10% to 15% of breast cancers are not detected by mammography. 3. Adenosis and dense breasts may obscure an underlying neoplasm. Reported by: JACOB MILLER MD Electonically Signed: [id number]
== END 2020-01-24 12:20 | disposition home or self-care (01) ==
LOC: BICMAMMO 12:19
PROVIDERS: ATTEND Family Medicine
DX: Z12.31 Encounter for screening mammogram for malignant neoplasm of breast (principal); Z80.3 Family history of malignant neoplasm of breast
CPT/HCPCS: 77063; 77067

== ENCOUNTER 2020-01-30 20:21 | Emergency (ER) | payer OTHER ==
[~2020-01-30 20:21] MED LIST: Iopamidol-370 76% 500 ML 1 ML ONE
--- NOTE | 2020-01-30 21:06 | RAD ---
EXAM: Single view of the chest HISTORY: Dizziness and chest pain COMPARISON: 03/14/2016 FINDINGS: Single view of the chest shows a normal sized cardiomediastinal silhouette. There is no fredi dence of consolidation, mass, or pleural effusion. The bones are unremarkable IMPRESSION: No evidence of acute cardiopulmonary disease
[2020-01-30 21:13] LABS: #Basophils 0.1 thou/uL (0.0-0.2); #Eosinphils 0.2 thou/uL (0.0-0.7); #Lymphocytes 3.7 thou/uL (1.20-3.40); #Monocytes 0.4 thou/uL (0.11-0.59); #Neutrophils 5.1 thou/uL (1.40-6.50); %Basophils 0.7 % (0.0-1.0); %Lymphocytes 39.1 % (21.0-51.0); %Monocytes 4.3 % (0.0-10.0); %Neutrophils 53.9 % (42.0-75.0); Hemoglobin 12.1 g/dL (12.0-16.0); Mean Corpuscular HGB CONC 31.6 g/dL (32.0-36.0); Mean Corpuscular Volume 91.6 fL (78.0-98.0); Platelet Count 333 thou/uL (130-400); RBC Distribution Width 13.4 % (11.5-14.5); Red Blood Cell (RBC) Count 4.18 mill/uL (4.20-5.40); White Blood Cell (WBC) Count 9.5 thou/uL (4.8-10.8)
--- NOTE | 2020-01-30 21:25 | CT ---
EXAM: CT brain without contrast HISTORY: Dizziness and headache COMPARISON: 11/22/2013 TECHNIQUE: Multiple contiguous axial images were obtained and a CT of the brain without contrast. FINDINGS: The brain is normal in morphology and attenuation without focal lesions or confluent areas of infarction. There is no evidence of hydrocephalus, intracranial hemorrhage, or extra-axial fluid collection. The calvarium and overlying soft tissues are unremarkable. The visualized paranasal sinuses and masto id air cells are well aerated. IMPRESSION: No evidence of acute intracranial abnormality
[2020-01-30 21:34] LABS: ALT (SGPT) 24 U/L (8-55); AST (SGOT) 19 U/L (5-34); Albumin 4.5 g/dL (3.4-4.8); Alkaline Phosphatase 107 U/L (40-110); Anion Gap 14 mmol/L (10-20); BUN (Urea Nitrogen) 20 mg/dL (9.8-20.1); Bilirubin, Total 0.5 mg/dL (0.2-1.2); Calc. Creatinine Clearance 0 mL/min (70-130); Calcium 9.6 mg/dL (7.8-10.44); Carbon Dioxide 25 mmol/L (23-31); Chloride 104 mmol/L (98-107); Estimated GFR-MDRD 62; Glucose 104 mg/dL (80-115); Potassium 3.7 mmol/L (3.5-5.1); Protein, Total 8.5 g/dL (6.0-8.3); Sodium 139 mmol/L (136-145)
[2020-01-30 21:35] LABS: Bilirubin Negative (Negative); Blood, Urine Negative (Negative); Clarity Clear (Clear); Glucose, Urine (Dipstick) Normal (Negative); Ketone, Urine Negative (Negative); Leukocyte Negative Leu/uL (Negative); Nitrite Negative (Negative); Protein, Urine (Dipstick) Negative (Neg-Trace); Specific Gravity, Urine 1.026 (1.002-1.036); Urobilinogen Normal mg/dL (Less than 2)
--- NOTE | 2020-01-30 22:05 | CT ---
EXAM: CTA of the chest HISTORY: Dizziness COMPARISON: 11/12/2017 TECHNIQUE: Multiple contiguous axial images were obtained a CTA of the chest with contrast per pulmon melly embolism protocol. 3-D oblique MIP reformats and direct coronal reformats were performed. FINDINGS: This exam is limited secondary to poor timing of the contrast bolus. The contrast is predominantly in the left heart and aorta. Evaluation of the subsegmental and segmental branches cannot be performed on this study. HEART: Normal in size without focal cardiac abnormality. PULMONARY ARTERIES: Normal in caliber without filling defects to suggest central pulmonary emboli. MEDIASTINUM: No hilar or mediastinal lymphadenopathy. LUNGS: No focal infiltrates or masses. PLEURAL SPACE: No pleural effusion or pneumothorax. CHEST WALL SOFT TISSUES: Unremarkable VISUALIZED OSSEOUS STRUCTURES: Degenerative changes in the spine. VISUALIZED SUBDIAPHRAGMATIC STRUCTURES: Status post cholecystectomy. IMPRESSION: No evidence of central pulmonary thromboembolism
== END 2020-01-30 22:50 | disposition home or self-care (01) ==
LOC: ERS 20:21
DX: R07.89 Other chest pain (principal); R20.2 Paresthesia of skin; F41.9 Anxiety disorder, unspecified; F32.9 Major depressive disorder, single episode, unspecified; E78.5 Hyperlipidemia, unspecified; E78.00 Pure hypercholesterolemia, unspecified; I10 Essential (primary) hypertension; J45.909 Unspecified asthma, uncomplicated; Z79.899 Other long term (current) drug therapy
CPT/HCPCS: 70450; 71045; 71275; 80053; 81003; 84484; 85025; 85379; 93005; Q9967

== ENCOUNTER 2020-11-13 10:23 | Outpatient (CLI) | payer OTHER ==
[2020-11-13 12:41] LABS: Hemoglobin 10.9 g/dL (12.0-15.5); Mean Corpuscular HGB CONC 31.3 g/dL (32.0-36.0); Mean Corpuscular Hemoglobin 28.5 pg (27.0-33.0); Mean Corpuscular Volume 91.1 fl (81.6-98.3); Mean Platelet Volume 10.1 fl (7.4-10.4); Platelet Count 347 10x3/uL (150-450); RBC Distribution Width 14.8 % (11.5-14.5); Red Blood Cell (RBC) Count 3.82 10x6/uL (3.90-5.03); White Blood Cell (WBC) Count 7.4 10x3/uL (3.5-10.5)
[2020-11-13 21:46] LABS: SARS-CoV-2 PCR by NAA Not Detected (NotDetected)
== END 2020-11-13 10:24 | disposition home or self-care (01) ==
LOC: LABBT 10:23
PROVIDERS: ATTEND Neurological Surgery
DX: Z01.818 Encounter for other preprocedural examination (principal); M51.16 Intervertebral disc disorders with radiculopathy, lumbar region; Z20.822 Contact with and (suspected) exposure to COVID-19
CPT/HCPCS: 85027; 87635; 93005; 93010; U0003; U0005

== ENCOUNTER 2020-11-16 05:37 | Day surgery (SDC) | payer OTHER ==
[2020-11-15 10:24] VITALS: BMI 33.6
[2020-11-16] MEDS ORDERED: Thrombin 5000 UNITS/5 ML VIAL ONE (06:10)
[2020-11-16] MEDS ORDERED: EPINEPHrine 1 MG/ML AMP ONE (06:10)
[2020-11-16] MEDS ORDERED: Bupivacaine PF 0.5% 30 ML VIAL ONE (06:10)
[2020-11-16] MEDS ORDERED: Fentanyl 100 MCG/2 ML VIAL ONE ×3 (06:19→11:19)
[2020-11-16 06:47] LABS: INR-International Normal Ratio 0.9; Prothrombin Time 12.6 sec (12.0-14.7)
[2020-11-16 06:56] LABS: Anion Gap 15 mmol/L (10-20); BUN (Urea Nitrogen) 13 mg/dL (9.8-20.1); Calc. Creatinine Clearance 84 mL/min (70-130); Calcium 9.8 mg/dL (7.8-10.44); Carbon Dioxide 28 mmol/L (23-31); Chloride 102 mmol/L (98-107); Glucose 96 mg/dL (80-115); Potassium 3.9 mmol/L (3.5-5.1); Sodium 141 mmol/L (136-145)
[2020-11-16] MEDS ORDERED: Midazolam HCl 2 mg/2 ml Vial ONE (06:56)
[2020-11-16] MEDS ORDERED: Clindamycin/D5W 900 mg/50 ml Premix Bag ONE ×2 (06:58→13:19)
[2020-11-16] MEDS ORDERED: Levofloxacin 500 mg/D5W 100 ml Premix Bag ONE (06:58)
[2020-11-16] MEDS ORDERED: PROPOFOL 200 MG/20 ML VIAL ONE (07:09)
[2020-11-16] MEDS ORDERED: Dexamethasone 20 MG/5 ML VIAL ONE (07:09)
[2020-11-16] MEDS ORDERED: Ondansetron PF 4 MG/2 ML Vial ONE (07:09)
[2020-11-16] MEDS ORDERED: Rocuronium Bromide 10 MG/ML (10ML VIAL) ONE (07:09)
[2020-11-16] MEDS ORDERED: Lidocaine 1% PF 5 ML VIAL ONE (07:09)
[2020-11-16] MEDS ORDERED: SUGAMMADEX SODIUM 200 MG/2 ML VIAL ONE (10:23)
[2020-11-16] MEDS ORDERED: Acetaminophen/Codeine 30-300mg Tablet ONE (13:05)
== END 2020-11-16 14:17 | disposition home or self-care (01) ==
LOC: SDC 05:37
PROVIDERS: ATTEND Neurological Surgery
PROC: 01NB0ZZ Release Lumbar Nerve, Open Approach (ICD-10-PCS; principal; 2020-11-16)
DX: M51.16 Intervertebral disc disorders with radiculopathy, lumbar region (principal); M48.062 Spinal stenosis, lumbar region with neurogenic claudication; E78.00 Pure hypercholesterolemia, unspecified; I10 Essential (primary) hypertension; J45.909 Unspecified asthma, uncomplicated; K21.9 Gastro-esophageal reflux disease without esophagitis; M19.90 Unspecified osteoarthritis, unspecified site; Z87.891 Personal history of nicotine dependence; Z79.899 Other long term (current) drug therapy; Z88.0 Allergy status to penicillin; Z88.5 Allergy status to narcotic agent
CPT/HCPCS: 76000; 80048; 85610; 85730; J0171; J0690; J1100; J1956; J2250; J2405; J2704; J3010; J3370; J3490; S0020

== ENCOUNTER 2021-04-11 11:00 | Outpatient (CLI) | payer OTHER | END 2021-04-11 11:01 | disposition home or self-care (01) | LOC: DTY/OP 11:00 | PROVIDERS: ATTEND Family Medicine | DX: Z71.3 Dietary counseling and surveillance (principal); R73.03 Prediabetes | CPT/HCPCS: 97802 ==

== ENCOUNTER 2021-05-23 13:36 | Outpatient (CLI) | payer OTHER | END 2021-05-23 13:37 | disposition home or self-care (01) | LOC: BICMAMMO 13:36 | PROVIDERS: ATTEND Family Medicine | DX: Z12.31 Encounter for screening mammogram for malignant neoplasm of breast (principal); Z80.3 Family history of malignant neoplasm of breast | CPT/HCPCS: 77063; 77067 ==

== ENCOUNTER 2022-06-26 14:58 | Outpatient (CLI) | payer MEDICARE, OTHER | END 2022-06-26 14:59 | disposition home or self-care (01) | LOC: BICRAD 14:58 | PROVIDERS: ATTEND Neurological Surgery | DX: M47.26 Other spondylosis with radiculopathy, lumbar region (principal) | CPT/HCPCS: 72110 ==

== ENCOUNTER 2022-07-10 09:47 | Outpatient (CLI) | payer OTHER | END 2022-07-10 09:48 | disposition home or self-care (01) | LOC: BICMAMMO 09:47 | PROVIDERS: ATTEND Family Medicine | DX: Z12.31 Encounter for screening mammogram for malignant neoplasm of breast (principal); Z80.3 Family history of malignant neoplasm of breast | CPT/HCPCS: 77063; 77067 ==

== ENCOUNTER 2023-01-15 19:30 | Outpatient (CLI) | payer OTHER | END 2023-01-15 19:31 | disposition home or self-care (01) | LOC: SLEEPLAB 19:30 | PROVIDERS: ATTEND Family Medicine | DX: G47.33 Obstructive sleep apnea (adult) (pediatric) (principal); F32.A Depression, unspecified; E66.9 Obesity, unspecified; I10 Essential (primary) hypertension | CPT/HCPCS: 95810 ==

== ENCOUNTER 2023-07-30 13:31 | Outpatient (CLI) | payer OTHER | END 2023-07-30 13:32 | disposition home or self-care (01) | LOC: BICMAMMO 13:31 | PROVIDERS: ATTEND Family Medicine | DX: Z12.31 Encounter for screening mammogram for malignant neoplasm of breast (principal); Z80.3 Family history of malignant neoplasm of breast | CPT/HCPCS: 77063; 77067 ==

== ENCOUNTER 2023-12-05 10:56 | Outpatient (CLI) | payer OTHER | END 2023-12-05 10:57 | disposition home or self-care (01) | LOC: BICMAMMO 10:56 | PROVIDERS: ATTEND Family Medicine | DX: Z13.820 Encounter for screening for osteoporosis (principal); M85.851 Other specified disorders of bone density and structure, right thigh; M85.852 Other specified disorders of bone density and structure, left thigh; Z78.0 Asymptomatic menopausal state | CPT/HCPCS: 77080 ==

== ENCOUNTER 2024-07-26 19:13 | Emergency (ER) | payer OTHER ==
[2024-07-26] MEDS ORDERED: Acetaminophen 500 MG TAB ONE (20:59)
== END 2024-07-26 21:07 | disposition home or self-care (01) ==
LOC: ERS 19:13
DX: S80.01XA Contusion of right knee, initial encounter (principal); I10 Essential (primary) hypertension; W01.0XXA Fall on same level from slipping, tripping and stumbling without subsequent striking against object, initial encounter
CPT/HCPCS: 99283